=== PATIENT | female | born 1945 | race Caucasian/White ===

== ENCOUNTER → 2024-07-31 | Outpatient (CLI) | payer MEDICARE ==
--- NOTE | 2024-07-31 11:18 | MM ---
Reason for Exam: Clinical finding. Last mammogram was performed 2 year(s) and 4 month(s) ago. Indicated Problems: Lump or thickening of the right side for 2 Week(s). Patient History: Menarche at age 14. First Full-Term at age 23. Postmenopausal. Mother had breast cancer, age 57. Risk Values: Roxi 5 year model risk: 3.3%. NCI Lifetime model risk: 6.3%. Prior Study Comparison: 10/16/2015 Bilateral MG screening mammo w CAD - 2, [facility] . 01/07/2017 Bilateral MG 3D screening mammo w/cad, [facility] . 10/31/2020 Bilateral MG 3D screening mammo w/cad, Unknown. 03/18/2022 Bilateral MG 3D screening mammo w/cad, [facility] . 04/14/2022 Left MG 3D work up w/cad LT - 2, [facility] . Tissue Density: There are scattered areas of fibroglandular density. Findings: Analyzed By CAD. No finding to correlate with palpable abnormality. Axillary lymph node is seen unclear if this correlates with palpable abnormality. Ultrasound imaging for confirmation. Overall Assessment: Incomplete: need additional imaging evaluation, BI-RAD 0 Management: Diagnostic Breast Ultrasound of the right breast. Results were given to the patient verbally at the time of exam. Patient should continue monthly self-breast exams. A clinical breast exam by your physician is recommended on an annual basis. This exam should not preclude additional follow-up of suspicious palpable abnormalities. Note on Roxi scores and lifetime risk: 1. A Roxi score greater than 3% is considered moderate risk. If this is the case, consider specialist referral to assess eligibility for a risk reducing agent. 2. If overall lifetime risk for the development of breast cancer is 20% or higher, the patient may qualify for future screening with alternating mammogram and breast MRI. [facility], , 07/31/2024 11:13 AM. Electronically signed and approved by: Henry Howell DO
--- NOTE | 2024-07-31 11:35 | USB ---
Reason for Exam: Clinical finding. Patient History: Menarche at age 14. First Full-Term at age 23. Postmenopausal. Mother had breast cancer, age 57. Risk Values: Roxi 5 year model risk: 3.3%. NCI Lifetime model risk: 6.3%. Technique: Method: Targeted. Prior Study Comparison: 10/31/2020 Bilateral MG 3D screening mammo w/cad, Unknown. 03/18/2022 Bilateral MG 3D screening mammo w/cad, [facility] . 04/14/2022 Left MG 3D work up w/cad LT - 2, [facility] . Findings: The area of palpable concern of the right breast, the axilla of the right breast and the retroareolar of the right breast were scanned. Technique utilized:US breast limited RT Image; Ultrasound imaging of: Area of concern, retroareolar region and axilla. A right axillary lymph node with cortex up to 3 mm is seen in the area of palpable abnormality. No other suspicious masses. Short-term follow-up recommended to ensure stability. Overall Assessment: Probably benign, BI-RAD 3 Management: Diagnostic Breast Ultrasound of the right breast in 6 months. A clinical breast exam by your physician is recommended on an annual basis and results should be correlated with mammographic findings. This exam should not preclude additional follow-up of suspicious palpable abnormalities. Results were given to the patient verbally at the time of exam. [facility], , 07/31/2024 11:31 AM. Electronically signed and approved by: Henry Howell DO
== END | disposition home or self-care (01) ==
LOC: RADMAMWWP 10:42
PROVIDERS: ATTEND Family Medicine
DX: N64.4 Mastodynia (principal); N63.10 Unspecified lump in the right breast, unspecified quadrant; R92.323 Mammographic fibroglandular density, bilateral breasts; Z78.0 Asymptomatic menopausal state; Z80.3 Family history of malignant neoplasm of breast
CPT/HCPCS: 77066; 76642; G0279; 77062